=== PATIENT | female | born 1985 | race Caucasian/White ===

== ENCOUNTER 2017-01-03 12:18 | Emergency (ER) | payer MEDICAID ==
--- NOTE | 2017-01-03 13:00 | ED Physician Chart ---
Chief Complaint/HPI - Patient Information Date Seen:: 01/03/17 Time Seen:: 12:53 Chief Complaint:: face lac History of Present Illness:: pt was home 45 min prior to ed and slipped on wet floor and fell forward and hit rt forehead on angle of wall. no loc. mild frontal pain and neck sore but ok rom. small lac under rt eyebrw. vis ok. no [place]. no dizzy,. no weak/numb. last d tet pt unsure..but wants to dw pmd before updating. dw pt. Allergies:: Allergies Allergy/AdvReac Type Severity Reaction Status Date / Time No Known Allergies Allergy Verified 01/03/17 12:29 Vitals:: Vital Signs - 8 hr 01/03/17 12:29 Temp 98.7 F HR 77 RR 15 BP 108/69 O2 Sat % 100 Historian:: Patient Review of Systems - Review of Systems General/Constitutional: No fever, No chills, No weight loss, No weakness, No diaphoresis, No edema, No loss of appetite Skin: No skin lesions, No rash, No bruising Head: No headache, No light-headedness Eyes: No loss of vision, No pain, No diplopia, Other (lac below rt eyebrow) ENT: No earache, No nasal drainage, No sore throat, No tinnitus Neck: Neck pain, No swelling, No thyromegaly, No stiffness, No mass noted Cardio Vascular: No chest pain, No palpitations, No PND, No orthopnea, No edema Pulmonary: No SOB, No cough, No sputum, No wheezing GI: No nausea, No vomiting, No diarrhea, No pain, No melena, No hematochezia, No constipation, No hematemesis G/U: No dysuria, No frequency, No hematuria Musculoskeletal: No bone or joint pain, No back pain, No muscle pain Endocrine: No polyuria, No polydipsia Psychiatric: No prior psych history, No depression, No anxiety, No suicidal ideation Hematopoietic: No bruising, No lymphadenopathy Allergic/Immuno: No urticaria, No angioedema Neurological: No syncope, No focal symptoms, No weakness, No paresthesia, No headache, No seizure, No dizziness, No confusion, No vertigo Past Medical History - Past Medical History Past Medical History: No significant medical hx Social History: Non Smoker Medication: Reviewed Family Medical History - Family Member Mother Hx Family Cancer: No Hx Family Coronary Artery Disease: No Hx Family Congestive Heart Failure: No Hx Family Hypertension: No Hx Family Stroke: No Hx Family Diabetes: No Hx Family Seizures: No Hx Family Dementia: No Hx Family AIDS: No Hx Family HIV: No Hx Family COPD: No Hx Family Tuberculosis: No Physical Exam - Physical Examination General/Constitutional: Awake, Well-developed, well-nourished, Alert, No distress, GCS 15, Non-toxic appearing, Ambulatory Other Head comments:: 1.5 cm shallow horrizontal just below rt eyebrow. on upper portion of eyelid. shallow lac but is full thickness w no damage to undelying orbicularis muscles. eomi and perrla intact. no f.b. pupil regular. no bony stepoff or deformity. no thaddeus facila bone tndrness. no nasal bleed. tms cl. cn 2-12 wnl. nrml neuro exam. Eyes: Lids, conjuctiva normal, PERRL, EOMI Skin: Nl inspection, No rash, No skin lesions, No ecchymosis, Well hydrated, No lymphadenopathy ENMT: External ears, nose nl, Nasal exam nl, Lips, teeth, gums nl Neck: Nontender, Full ROM w/o pain, No JVD, No nuchal rigidity, No bruit, No mass, No stridor Respiratory: Nl effort/Exclusion, Clear to Auscultation, No Wheeze/Rhonchi/Rales Cardio Vascular: RRR, No murmur, gallop, rubs, NL S1 S2 GI: No tenderness/rebounding/guarding, No organomegaly, No hernia, Normal BS's, Nondistended, No mass/bruits, No McBurney tenderness : No CVA tenderness Extremities: No tenderness or effusion, Full ROM, normal strength in all extremities, No edema, Normal digits & nails Neuro/Psych: Alert/oriented, DTR's symmetric, Normal sensory exam, Normal motor strength, Judgement/insight normal, Mood normal, Normal gait, No focal deficits Misc: normal gait, Normal back, No paraspinal tenderness Assessment Location:: 1.5 cm on rt eyelid. high complexity of repair due to location extremely close to eye. d/w pt...advised sutures due to mvt area and difficult region to glue. pt prefers glue. wound cleaned w betadyne..flushed w ns. no f.b. pt positioned supine w neck roll extended position to avoid glue drip into eye. extreme care taken to ctrl glue flow and wound well approximated and glue w/o incident. advised pt about wound care etc and fu w pmd. advised pt dw her pmd about her d-tet status. offered pt a head/neck ct ...she is worried about her 7 kids at home and needs to get back...dw pt sign s of head inj and she is to ret if any sz, confusion/ weakness/numbness/vis chnges/sev [place]...etc. friend advised to do neuro obs today.. Laceration Type:: Complex ED Septic Shock - . Is Septic Shock (SBP<90, OR Lactate>4 mmol\L) present?: No - <6hrs of presentation: Vital Signs: Vital Signs - 8 hr 01/03/ 12:29 Temp 98.7 F HR 77 RR 15 BP 108/69 O2 Sat % 100 Reassessment (Disposition) - Reassessment Reassessment Condition:: Improved - Diagnosis Diagnosis:: 1.5 cm lac rt eyelid s/p dermabond closure in ED - Aftercare/Follow up Instructions Aftercare/Follow-Up Instructions:: Counseled pt regarding lab results/diagnosis & need follow up - Patient Disposition Discharge/Transfer:: Home Condition at Disposition:: Improved
== END 2017-01-03 13:15 | disposition home or self-care (01) ==
LOC: ER 12:18
DX: S01.111A Laceration without foreign body of right eyelid and periocular area, initial encounter (principal); W01.0XXA Fall on same level from slipping, tripping and stumbling without subsequent striking against object, initial encounter; Y93.89 Activity, other specified; Y92.89 Other specified places as the place of occurrence of the external cause; Y99.8 Other external cause status
CPT/HCPCS: 12011; Z7502; Z7610